=== PATIENT | female | born 1940 | race Caucasian/White ===

== ENCOUNTER 2016-06-12 10:05 | Day surgery (SDC) | payer OTHER ==
[~2016-06-12] VITALS: Ht 160 cm; Wt 93.0 kg
[~2016-06-12 10:05] MED LIST: AMLODIPINE BESY10 MG PO; APRESOLINE20 MG/ML IV; ASPIR-LOW81 MG PO; ATARAX,VISTARIL25 MG PO; BENADRYL25 MG PO; BISACODYL5 MG PO; CLARITIN10 M3 PO; COLACE100 MG PO; ENALAPRIL MALEA10 MG PO; ENALAPRIL MALEA20 MG PO; ENDOCET 5-3251 EACH PO; FLAX OIL1000 MG PO; FLUORITAB0.5 MG PO; FUROSEMIDE40 MG PO; GLUCAGEN1 MG IM/SC; HUMALOG MI100 UNIT/5 SC; HYDROCHLOROTHIA25 MG PO; HYDROXYZINE PAM25 MG PO; IBUPROFEN200 M1 PO; KRILL OIL500 MG PO; L-LYSINE500 M1 PO; LANTUS 3 M100 UNITS1 SC; LEVEMIR FL100 UNIT/1 SC; LORATADINE10 M2 PO; LOVENOX40 MG/0.4 SC; LUBRICANT EYE15 M1 BOTH EYES; MAG-AL PLUS SUS30 ML PO; METFORMIN HCL1000 MG PO; METFORMIN HCL500 M1 PO; METFORMIN HCL500 MG PO; METOPROLOL SUC100 MG PO; METOPROLOL SUCC50 MG PO; METOPROLOL TAR100 MG PO; MULTIVITAMIN1 EAC2 PO; NOVOLOG 10100 UNITS/ SC; NOVOLOG PE100 UNITS/ SC; ONDANSETRON4 MG/2 ML IV; OXYCODONE-APAP1 EACH PO; POTASSIUM CHLO20 ME2 PO; PRAVASTATIN SOD80 MG PO; PROBIOTIC1 EAC2 PO; SIMVASTATIN40 MG PO; TEARS NATURALE-15 ML BOTH EYES; TRAMADOL HCL50 MG PO
[2016-06-12 11:28] LABS: POINT-OF-CARE METER ID UU13113696
[2016-06-12 14:03] LABS: POINT-OF-CARE METER ID UU13113819
== END 2016-06-12 18:05 | disposition home or self-care (01) ==
LOC: CATH 10:05
PROVIDERS: Internal Medicine Cardiovascular Disease
DX: R07.9 Chest pain, unspecified (principal); R94.39 Abnormal result of other cardiovascular function study; I25.10 Atherosclerotic heart disease of native coronary artery without angina pectoris; I10 Essential (primary) hypertension; E11.9 Type 2 diabetes mellitus without complications; E78.5 Hyperlipidemia, unspecified; Z95.5 Presence of coronary angioplasty implant and graft
CPT/HCPCS: 82948; C1769; C1887; J0360; J1644; J1815; J2250; J3010